=== PATIENT | male | born 1960 | race Caucasian/White ===

== ENCOUNTER 2021-05-05 18:09 | Inpatient (IN) ==
[2021-05-05] MEDS ORDERED: SODIUM CHLORIDE 0.9% 1,000 ML IV STA (18:42)
[2021-05-05] MEDS ORDERED: cefTRIAXone 1,000 MG in SODIUM CHLORIDE 0.9% 100 ML IV STA (19:18)
[2021-05-05] MEDS ORDERED: DEXAMETHASONE 4 MG/1 ML VIAL IV STA (19:18)
[2021-05-05] MEDS ORDERED: AZITHROMYCIN INJ 500 MG in SODIUM CHLORIDE 0.9% 250 ML IV STA (19:18)
[2021-05-05 20:15] LABS: ABG Base Excess 0.7 MMOL/L (-2.5-2.5); ABG HCO3 23.3 MMOL/L (20-26); ABG Oxygen Saturation 93.9 % (95-100); ABG PCO2 31.6 MM HG (35-48); ABG PH 7.485 (7.35-7.45); ABG PO2 73.9 MM HG (80-95); ABG TCO2 24.2 MMOL/L (23-27)
[2021-05-05 20:18] LABS: Basophils % 0.1 % (0.0-0.8); Eosinophils # 0.1 10*3/uL (0.0-0.87); Hematocrit 41.2 VOL% (42.0-52.0); Hemoglobin 13.3 GM/DL (14.0-18.0); Immature Granulocytes % 0.8 %; Immature Granulocytes Absolute 0.06 #; Lymphocytes # 0.7 10*3/uL (1.4-4.0); Lymphocytes % 8.2 % (21.2-54.2); Mean Corpuscular HGB Conc 32.3 GM/DL (32-36); Mean Platelet Volume 11.6 FL (9.6-12.0); Monocytes % 10.5 % (1.7-12.7); Neutrophils % 79.4 % (38.7-73.9); Platelet Count 254 T/CUMM (130-400); Red Blood Count 4.63 MC/CUMM (3.8-5.5); Red Cell Distribution Width 12.8 % (9.3-17.3)
[2021-05-05 20:38] LABS: Albumin 2.6 G/DL (3.4-5.0); Bilirubin,Total 0.9 MG/DL (0.20-1.00); Calcium 9.3 MG/DL (8.5-10.1); Osmolality,Calculated 275.8 MOS/KG (273-304); Potassium 3.7 MMOL/L (3.5-5.1); Total Protein 8.5 G/DL (6.4-8.2)
[2021-05-05 20:41] LABS: Ferritin 855.9 ng/ml (26-388)
[2021-05-05] MEDS ORDERED: NICOTINE 21 MG/24 HR PATCH TRANSDERM PRN (22:17)
[2021-05-05] MEDS ORDERED: ZALEPLON 5 MG CAPSULE PO PRN (22:17)
[2021-05-05] MEDS ORDERED: DOCUSATE SODIUM 100 MG CAPSULE PO PRN (22:17)
[2021-05-05] MEDS ORDERED: hydrALAZINE 20 MG/1 ML VIAL IV PRN (22:17)
[2021-05-05] MEDS ORDERED: guaiFENesin/DM ER 600-30 MG TABLET PO PRN (22:17)
[2021-05-05] MEDS ORDERED: ACETAMINOPHEN 325 MG TABLET PO PRN (22:17)
[2021-05-05] MEDS ORDERED: diphenhydrAMINE CAP 25 MG CAPSULE PO PRN (22:17)
[2021-05-05] MEDS ORDERED: GLUCAGON 1 MG VIAL IM PRN ×2 (22:17)
[2021-05-05] MEDS ORDERED: ONDANSETRON 4 MG/2 ML VIAL IV PRN (22:17)
[2021-05-05] MEDS ORDERED: DEXTROSE 50% 25 GM/50 ML VIAL IV PRN ×2 (22:17)
[2021-05-05] MEDS ORDERED: ALBUTEROL INHALER 18 GM INH PRN (23:07)
[2021-05-06] MEDS: ALBUTEROL INHALER 18 GM INH SCH ×6 (03:29→23:16)
[2021-05-06 05:13] LABS: Basophils % 0.3 % (0.0-0.8); Eosinophils % 0.2 % (0.00-10.9); Hematocrit 38.3 VOL% (42.0-52.0); Hemoglobin 12.8 GM/DL (14.0-18.0); Immature Granulocytes % 1.1 %; Immature Granulocytes Absolute 0.07 #; Lymphocytes # 0.8 10*3/uL (1.4-4.0); Lymphocytes % 11.9 % (21.2-54.2); Mean Corpuscular HGB Conc 33.4 GM/DL (32-36); Mean Corpuscular Volume 87.2 FL (87-102); Mean Platelet Volume 10.9 FL (9.6-12.0); Monocytes % 8.4 % (1.7-12.7); Neutrophils % 78.1 % (38.7-73.9); Platelet Count 230 T/CUMM (130-400); Red Blood Count 4.39 MC/CUMM (3.8-5.5); Red Cell Distribution Width 12.6 % (9.3-17.3); White Blood Count 6.5 T/CUMM (4-12)
[2021-05-06 05:34] LABS: Calcium 9.2 MG/DL (8.5-10.1); Potassium 4.2 MMOL/L (3.5-5.1)
[2021-05-06] MEDS ORDERED: TOCILIZUMAB IV ONE (09:00)
[2021-05-06] MEDS ORDERED: REMDESIVIR 200 MG in SODIUM CHLORIDE 0.9% 210 ML IV ONE (09:00)
[2021-05-06] MEDS ORDERED: SODIUM CHLORIDE 0.9% IV ONE (09:00)
[2021-05-06] MEDS: CHOLECALCIFEROL 1,000 UNIT TABLET PO SCH (09:43)
[2021-05-06] MEDS: PANTOPRAZOLE 40 MG TABLET PO SCH (09:43)
[2021-05-06] MEDS: ASCORBIC ACID 500 MG TABLET PO SCH ×2 (09:43→20:52)
[2021-05-06] MEDS: FAMOTIDINE 20 MG TABLET PO SCH ×2 (09:43→20:52)
[2021-05-06] MEDS: ZINC GLUCONATE 50 MG TABLET PO SCH (09:43)
[2021-05-06] MEDS: ENOXAPARIN 40 MG/0.4 ML SYRINGE SUBCUT SCH (09:47)
[2021-05-06] MEDS: DEXAMETHASONE 4 MG/1 ML VIAL IV SCH (09:48)
[2021-05-06] MEDS: cefTRIAXone 1,000 MG in SODIUM CHLORIDE 0.9% 100 ML IV SCH (09:55)
[2021-05-06] MEDS: INSULIN LISPRO 100 UNIT/ML SUBCUT SCH ×4 (09:57→21:54)
[2021-05-06] MEDS: IVERMECTIN 3 MG TABLET PO SCH (16:30)
[2021-05-06] MEDS ORDERED: AZITHROMYCIN INJ 500 MG in SODIUM CHLORIDE 0.9% 250 ML IV SCH (21:00)
[2021-05-07] MEDS: ALBUTEROL INHALER 18 GM INH SCH ×2 (03:23→06:13)
[2021-05-07 05:04] LABS: Basophils % 0.1 % (0.0-0.8); Eosinophils % 0.3 % (0.00-10.9); Hematocrit 36.4 VOL% (42.0-52.0); Hemoglobin 11.8 GM/DL (14.0-18.0); Immature Granulocytes % 1.1 %; Immature Granulocytes Absolute 0.13 #; Lymphocytes # 1.3 10*3/uL (1.4-4.0); Lymphocytes % 11.1 % (21.2-54.2); Mean Corpuscular HGB Conc 32.4 GM/DL (32-36); Mean Corpuscular Volume 88.3 FL (87-102); Mean Platelet Volume 10.8 FL (9.6-12.0); Monocytes % 8.7 % (1.7-12.7); Neutrophils % 78.7 % (38.7-73.9); Platelet Count 315 T/CUMM (130-400); Red Blood Count 4.12 MC/CUMM (3.8-5.5); Red Cell Distribution Width 12.3 % (9.3-17.3); White Blood Count 11.5 T/CUMM (4-12)
[2021-05-07 05:34] LABS: Calcium 9.1 MG/DL (8.5-10.1); Osmolality,Calculated 278.7 MOS/KG (273-304); Potassium 3.7 MMOL/L (3.5-5.1)
[2021-05-07 05:39] LABS: Ferritin 1149.3 ng/ml (26-388)
[2021-05-07] MEDS: INSULIN LISPRO 100 UNIT/ML SUBCUT SCH (08:34)
[2021-05-07] MEDS ORDERED: REMDESIVIR 100 MG in SODIUM CHLORIDE 0.9% 100 ML IV SCH (09:00)
[2021-05-07] MEDS: PANTOPRAZOLE 40 MG TABLET PO SCH (09:30)
[2021-05-07] MEDS: CHOLECALCIFEROL 1,000 UNIT TABLET PO SCH (09:30)
[2021-05-07] MEDS: ZINC GLUCONATE 50 MG TABLET PO SCH (09:30)
[2021-05-07] MEDS: FAMOTIDINE 20 MG TABLET PO SCH (09:30)
[2021-05-07] MEDS: ASCORBIC ACID 500 MG TABLET PO SCH (09:30)
[2021-05-07] MEDS: IVERMECTIN 3 MG TABLET PO SCH (09:31)
[2021-05-07] MEDS: DEXAMETHASONE 4 MG/1 ML VIAL IV SCH (09:32)
[2021-05-07] MEDS: ENOXAPARIN 40 MG/0.4 ML SYRINGE SUBCUT SCH (09:32)
[2021-05-07] MEDS: cefTRIAXone 1,000 MG in SODIUM CHLORIDE 0.9% 100 ML IV SCH (09:33)
[2021-05-07 10:39] VITALS: BP 126/70
== END 2021-05-07 12:20 | disposition home or self-care (01) | DRG 177 ==
LOC: N.ED 18:09 → N.EDINP 22:17 → SUATTDRO 22:17 → N.EDINP 23:30 → N.2E 05-06 00:07
PROVIDERS: ADMIT Hospitalist; ATTEND Internal Medicine